=== PATIENT | male | born 1955 | race Caucasian/White ===

== ENCOUNTER 2016-05-29 10:38 | Emergency (ER) | payer MEDICARE, MEDICAID ==
[2016-05-29] MEDS ORDERED: DILAUDID 1 MG/ML AMP ONE (13:21)
[2016-05-29] MEDS ORDERED: METHYLPRED SOD SUCC 125 MG/2 ML VIAL ONE (13:21)
== END 2016-05-29 13:53 | disposition home or self-care (01) ==
LOC: ER 10:38
CPT/HCPCS: 72100 ×2; 73502; 96372 ×2; 99284; J1170; J2930